=== PATIENT | female | born 1995 | race African-American/Black ===

== ENCOUNTER 2017-05-19 10:20 | Emergency (ER) | payer OTHER, MEDICARE ==
[~2017-05-19] VITALS: Ht 165.1 cm; Wt 65.0 kg
[~2017-05-19 10:20] MED LIST: FOLI-43 PO; IRON-1 PO; OCD MT; PREN-88 PO
[2017-05-19] MEDS ORDERED: LORAZEPAM 2MG/ML CPJ IV ONE (11:00)
[2017-05-19] MEDS ORDERED: OLANZAPINE 10 MG/VIAL IM ONE (11:00)
[2017-05-19 11:19] LABS: BASOPHILS % 0.5 % (0.0-2.0); EOSINOPHILS % 0.2 % (0.0-5.0); HEMATOCRIT. 37.7 % (36.0-48.0); HEMOGLOBIN. 12.4 g/dL (12.0-16.0); MEAN CORPUSCULAR VOLUME 79.2 fL (81.0-99.0); MEAN PLATELET VOLUME 8.3 fl (7.4-10.4); MONOCYTES % 10.9 % (2.0-8.0); NEUTROPHILS % 61.4 % (40.0-76.0); PLATELET 233 x1000/uL (130-400); RED BLOOD CELL COUNT 4.76 mill/uL (4.2-5.4); RED CELL DISTRIBUTION WIDTH 14.7 % (11.6-14.6)
[2017-05-19 11:33] LABS: CARBON DIOXIDE 24 mEq/L (21-32); CHLORIDE 107 mEq/L (98-107); ETHANOL BLOOD < 10 mg/dL
[2017-05-19 12:19] LABS: *AMPHETAMINES SCREEN URINE NEGATIVE (NEGATIVE); *BARBITURATES SCREEN URINE NEGATIVE (NEGATIVE); *BENZODIAZEPINES SCREEN URINE NEGATIVE (NEGATIVE); *COCAINE SCREEN URINE NEGATIVE (NEGATIVE); METHADONE URINE SCREEN NEGATIVE (NEGATIVE); OPIATES URINE SCREEN NEGATIVE (NEGATIVE); PHENCYCLIDINE URINE SCREEN NEGATIVE (NEGATIVE)
[2017-05-19 12:22] LABS: CANNABINOID URINE SCREEN PRESUMTIVE POSITIVE (NEGATIVE)
[2017-05-19] MEDS ORDERED: POTASSIUM CHLORIDE 20MEQ TABLET SR PO ONE (15:00)
[2017-05-19 16:02] VITALS: BP 118/72
== END 2017-05-19 17:30 | disposition home or self-care (01) ==
LOC: ER 10:40 → CANBEDREQ 12:58 → ER 17:30
DX: F30.2 Manic episode, severe with psychotic symptoms (principal); F12.10 Cannabis abuse, uncomplicated; J45.909 Unspecified asthma, uncomplicated; F31.9 Bipolar disorder, unspecified; E87.6 Hypokalemia; Z88.2 Allergy status to sulfonamides
CPT/HCPCS: 36415; 80048; 80305; 80307; 80329; 85025; 96372; 96374; 99285; G0482; J2060; J3490

== ENCOUNTER 2020-10-29 10:20 | Emergency (ER) | payer MEDICAID, MEDICARE, OTHER ==
[~2020-10-29] VITALS: Ht 165.1 cm; Wt 68.0 kg
[2020-10-29] MEDS ORDERED: ACETAMINOPHEN 500MG TABLET PO ONE (10:45)
[2020-10-29 12:47] VITALS: BP 130/76
== END 2020-10-29 12:49 | disposition home or self-care (01) ==
LOC: ER 10:20
DX: S05.11XA Contusion of eyeball and orbital tissues, right eye, initial encounter (principal); Y04.2XXA Assault by strike against or bumped into by another person, initial encounter; Y93.89 Activity, other specified; Y92.89 Other specified places as the place of occurrence of the external cause; J45.909 Unspecified asthma, uncomplicated; F31.9 Bipolar disorder, unspecified
CPT/HCPCS: 70486; 81025; 99284